=== PATIENT | female | born 1940 | race Caucasian/White ===

== ENCOUNTER → 2017-06-24 | Outpatient (CLI) | payer OTHER, MEDICARE ==
[~2017-06-24] MED LIST: ATORVASTATIN CA20 MG PO; BAYER CHEWABLE81 MG PO; BENICAR; CARVEDILOL3.125 MG PO; COZAAR 25 MG TA25 M2 PO; DUONEB 2.5-0.5 M3 ML INH; FELODIPINE 5 MG5 M1 PO; GLUCOPHAGE500 MG; HUMALOG100 UNIT/1 SUBQ; LIPITOR20 MG; METFORMIN HCL500 MG PO; MULTIVITAMINS; OMEPRAZOLE; OMEPRAZOLE20 M1 PO; PREDNISONE 20 M20 M1 PO; PROAIR HFA8.5 GM; ROCEPHIN 11 GM/1001 IV; TRADJENTA5 MG PO; VITAMIN D400 UNI1
== END ==
LOC: RAD 02:18
DX: Z12.31 Encounter for screening mammogram for malignant neoplasm of breast (principal)

== ENCOUNTER → 2018-06-25 | Outpatient (CLI) | payer OTHER, MEDICARE | LOC: RAD 01:16 | DX: Z12.31 Encounter for screening mammogram for malignant neoplasm of breast (principal); J44.9 Chronic obstructive pulmonary disease, unspecified; I10 Essential (primary) hypertension; E78.00 Pure hypercholesterolemia, unspecified; Z88.5 Allergy status to narcotic agent ==

== ENCOUNTER 2019-10-18 12:32 | Inpatient (IN) | payer OTHER, MEDICARE ==
[~2019-10-18] VITALS: Ht 160 cm; Wt 72.6 kg
[2019-10-18 12:34] VITALS: BP 156/72
[2019-10-18 12:51] LABS: ABSOLUTE NEUTROPHILS 4.8 thou/uL (1.4-8.2); EOSINOPHILS 6.8 % (0.0-3.0); HEMATOCRIT 40.7 % (37.0-47.0); HEMOGLOBIN 13.6 gm/dL (12.0-15.0); LYMPHOCYTES 25.4 % (24.0-44.0); MCH 29.4 pg (26.0-34.0); MCHC 33.4 g/dL (28.0-37.0); MCV 88.1 fL (80.0-100.0); MONOCYTES 8.5 % (1.0-8.0); PLATELET COUNT 246 thou/uL (150-400); POLYS 58.3 % (36.0-66.0); RBC 4.62 mil/uL (4.20-5.00); RDW 13.9 % (10.5-14.5); WBC 8.3 thou/uL (4.0-11.0)
[2019-10-18 13:00] LABS: CALCIUM 10.6 mg/dL (8.5-10.1); CREATININE 1.1 mg/dL (0.6-1.0); POTASSIUM 3.7 mmol/L (3.5-5.1)
[2019-10-18 13:09] LABS: TROPONIN-I 0.17 ng/mL (<0.06)
--- NOTE | 2019-10-18 13:24 | EKG ---
[place] [address] [facility] [facility] [employer] [address] ELECTROCARDIOGRAM REPORT Name: ERNESTINE SHANE [facility] [id number] Admission: 10/18/19 Attend Phys: Discharge: Date of : 40 Report #: [id number] THIS REPORT FOR: //name// [facility] ED Test Date: 2019-10-18 Test Time: 12:35:10 Pat Name: ERNESTINE SHANE Department: Room: Gender: F Functional Skills Tutor: : 1940 Requested By: Nic Emmanuel Order Number: [id number] MD: David Bonner Measurements Intervals Converse Rate: 83 P: 71 NH: 159 QRS: 31 QRSD: 100 T: 75 QT: 383 QTc: 450 Interpretive Statements Sinus rhythm Nonspecific ST segment abnormality Compared to ECG 01/15/2017 13:10:20 Ventricular premature complex(es) no longer present Electronically Signed On 10-18-2019 13:23:53 ABATTOIR MANAGER by David Bonner [email or web address] <ELECTRONICALLY SIGNED> By: David Bonner MD, [facility] 10/18/19 1323 1235 1235 David Bonner MD, FACC /EPI
[2019-10-18 13:43] VITALS: BP 147/65
[2019-10-18] MEDS ORDERED: METFORMIN HCL500 M3 PO (14:41)
[2019-10-18] MEDS ORDERED: LOSARTAN-HCTZ1 EAC3 PO (14:42)
[2019-10-18] MEDS ORDERED: TRIAMTERENE-HC1 EAC2 PO (14:43)
[2019-10-18 14:53] VITALS: BP 155/66
[2019-10-18 15:00] VITALS: BP 132/52
--- NOTE | 2019-10-18 18:28 | NUR ---
79 YO FEMALE ADMITTED TO 212 FROM ED. PATIENT HAD R CHEST PAIN IN ED. ASSESSMENT CHARTED, PATIENT STATES NO PAIN. ALERT AND ORIENTED X 3, NO CONCERNS STATED, WILL CONTINUE TO MONITOR.
[2019-10-18 19:49] VITALS: BP 133/70
[2019-10-19] VITALS (13 sets, daily range): BP systolic 120–143; BP diastolic 45–76
[2019-10-19 05:15] LABS: CHOLESTEROL 185 mg/dL (<200); HDL CHOLESTEROL 49 mg/dL (>40); LDL CHOLESTEROL 79 mg/dL (<100); SERUM ASSESSMENT Clear; TC:HDL 3.8 Ratio (Not establshd); TRIGLYCERIDE 286 mg/dL (<150); TROPONIN-I 0.17 ng/mL (<0.06); VLDL 57 mg/dL (<40)
--- NOTE | 2019-10-19 05:25 | NUR ---
ASSUMED CARE [id number]. PT ALERT AND ORIENTED . DENIES CHEST PAIN, N/V/D. VITAL SIGNS STABLE. PT USES OXYGEN AT NIGHT FOR SLEEP. DENIES NAUSEA, AND SHORT OF AIR. PT CURRENTLY STABLE. WILL CONTINUE TO FOLLOW POC.
[2019-10-19 07:22] LABS: CALCIUM 9.6 mg/dL (8.5-10.1); POTASSIUM 3.8 mmol/L (3.5-5.1)
--- NOTE | 2019-10-19 11:28 | NUR ---
ASSUMED CARE AT 0700, SHIFT ASSESSMENT DONE, MEDS GIVEN, NPO SINCE LAST NIGHT FOR HEART CATH. LEFT FOR PULMONARY SPECIALIST AT 1030. DENIES PAIN, NAUSEA, VOMITING. UP WITH STANDBY, ROOM AIR, NSR ON TELE. WILL CONTINUE TO ASSESS AND ASSIST WITH ADLs NEEDED.
--- NOTE | 2019-10-19 14:41 | NUR ---
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 she lives with roomate at home. patient reports she does not use any assistive device. She is independent with adls and self care. She is hoping to dc today. She reports plan to drive to [place] for and leaving next saturday. She has packing to do and prepare for trip. patient denies dc needs she does not believe she needs HH care. Plan home independently.
--- NOTE | 2019-10-19 16:34 | CATHLAB ---
[facility] [email or web address] [address] INVASIVE PROCEDURE REPORT Name: ERNESTINE SHANE Room #: 212-P ADM IN M.R.#: [id number] Admission: 10/18/19 Attend Phys: Trung Le Discharge: Date of : 40 Report #: [id number] THIS REPORT FOR: //name// APPROVED REPORT Study performed: 10/19/2019 11:04:59 Patient Details Patient Status: In-Patient Room #: The patient is a 79 year-old female Event Personnel Vini Mclean Fire Crew Worker, Gavi Santos RN RN, Marisol Lara RTR Simone Parrish Roberta Monitor, Edmund Hassan RTR Monitor Procedures Performed Art Access - R femoral artery* Left Heart Cath w/or w/o Coronaries [id number] [facility] [id number] Initial Mod Sed Same Phys/QHP 5y [id number] Hemostasis with Manual pressure Indication Chest pain, The patient presented with chest discomfort and minimal troponin elevation. Risk Factors Hypercholesterolemia, Hypertension, History of cardiomyopathy. Procedure Narrative The Right Groin^ was infiltrated with 1% Lidocaine subcutaneous anesthesia. A PINNACLE 4FR Sheath #[id number] sheath was inserted into the RFA^. Coronary angiography was performed using coronary diagnostic catheters. The right coronary system was accessed and visualized with a JR4 catheter. The left coronary system was accessed and visualized with a JL4 catheter. The left ventricle was accessed and visualized with a ANGLED PIGTAIL catheter. Hemostasis was obtained with manual pressure following sheath removal without any complications. There was no hematoma. Intraoperative Conscious Sedation Sedation start time: 10:54 Case end Time: 11:20 Fentanyl 50 mcg Versed 1 mg [facility] [address] [place] [address] INVASIVE PROCEDURE REPORT Name: ERNESTINE SHANE Room #: 212-[facility].#: [id number] Admission: 10/18/19 Attend Phys: Trung Le Discharge: Date of : 40 Report #: [id number] Fluoro Time: 2.30 minutes Dose: DAP 2592.00 cGycm2 662 mGy Contrast Type and Amount: Omnipaque 80 ml Coronary Angiography The patient's coronary anatomy is right dominant. Diagnostic Cath Left Main This is a large caliber vessel, patent with no flow-limiting lesions. LAD This is a moderate size caliber vessel, tortuous as it traverses the anterior wall and wraps around the apex. This vessel is patent with minimal luminal irregularities in the mid segment. Diagonal 1 This is a patent vessel, with no flow-limiting lesions. Circumflex This supplies one moderate size OM vessel. OM1 This is a moderate size caliber vessel, supplies multiple branches as it travels down the lateral wall. This vessel is patent with no flow-limiting lesions. Right Coronary This is a dominant vessel, patent with no flow-limiting lesions. R PDA This is a patent vessel, with no flow-limiting lesions. RPLV This is a patent vessel, with no flow-limiting lesions. Left Ventriculography The left ventricle is normal in size with normal contractility. The left ventricular ejection fraction is estimated to be >55%. Hemodynamics The aortic pressure is 146/54 mmHg with a mean of 75 mmHg. The left ventricular pressure is 162/3 mmHg with a mean of mmHg. The left ventricular end diastolic pressure is 25 mmHg. Conclusion 1. Angiographically normal coronary arteries, with minimal luminal irregularities in the mid segment of the LAD. 2. Normal LV systolic function. 3. Recommend risk factor management. <ELECTRONICALLY SIGNED> By: Vini Mclean MD 10/19/19 1634 1634 1634 Vini Mclean MD /INF
[2019-10-19] MEDS ORDERED: LOPRESSOR50 PO (16:42)
[2019-10-19 23:08] LABS: GLYCOHEMOGLOBIN (HGB A1C) 7.6 % (4.8-5.6)
== END 2019-10-19 18:38 | disposition home or self-care (01) | DRG 287 ==
LOC: ER 12:32 → 2N 13:42 → EROBS 13:42 → 2N 14:55 → ENTRNSPT 10-19 18:22 → 2N 10-19 18:38
PROVIDERS: Emergency Medicine; ADMIT Hospitalist
PROC: B2151ZZ Fluoroscopy of Left Heart using Low Osmolar Contrast (ICD-10-PCS; principal; 2019-10-19)
PROC: B2111ZZ Fluoroscopy of Multiple Coronary Arteries using Low Osmolar Contrast (ICD-10-PCS; principal; 2019-10-19)
PROC: 4A023N7 Measurement of Cardiac Sampling and Pressure, Left Heart, Percutaneous Approach (ICD-10-PCS; principal; 2019-10-19)
DX: I25.10 Atherosclerotic heart disease of native coronary artery without angina pectoris (principal); N17.9 Acute kidney failure, unspecified; I42.9 Cardiomyopathy, unspecified; I10 Essential (primary) hypertension; J44.9 Chronic obstructive pulmonary disease, unspecified; E78.5 Hyperlipidemia, unspecified; K21.9 Gastro-esophageal reflux disease without esophagitis; E83.52 Hypercalcemia; Z60.2 Problems related to living alone; E78.00 Pure hypercholesterolemia, unspecified; E11.51 Type 2 diabetes mellitus with diabetic peripheral angiopathy without gangrene; Z95.5 Presence of coronary angioplasty implant and graft; Z85.3 Personal history of malignant neoplasm of breast; Z99.81 Dependence on supplemental oxygen; Z90.49 Acquired absence of other specified parts of digestive tract; Z79.899 Other long term (current) drug therapy; Z79.84 Long term (current) use of oral hypoglycemic drugs; Z79.4 Long term (current) use of insulin; Z88.1 Allergy status to other antibiotic agents; Z88.8 Allergy status to other drugs, medicaments and biological substances; Z88.6 Allergy status to analgesic agent; Z82.49 Family history of ischemic heart disease and other diseases of the circulatory system
CPT/HCPCS: 10081

== ENCOUNTER → 2019-12-08 | Outpatient (CLI) | payer OTHER, MEDICARE ==
[~2019-12-08] MED LIST changes: +LOPRESSOR50 PO; +LOSARTAN-HCTZ1 EAC3 PO; +METFORMIN HCL500 M3 PO; +TRIAMTERENE-HC1 EAC2 PO
== END ==
LOC: SJCVC 10:43
DX: I25.10 Atherosclerotic heart disease of native coronary artery without angina pectoris (principal); K21.9 Gastro-esophageal reflux disease without esophagitis; E11.9 Type 2 diabetes mellitus without complications; G47.33 Obstructive sleep apnea (adult) (pediatric); I11.0 Hypertensive heart disease with heart failure; I50.9 Heart failure, unspecified; E78.00 Pure hypercholesterolemia, unspecified

== ENCOUNTER → 2020-03-18 | Outpatient (CLI) | payer OTHER, MEDICARE | LOC: SJCVCIMAG 08:17 | DX: I77.1 Stricture of artery (principal); I73.9 Peripheral vascular disease, unspecified; M79.602 Pain in left arm; I42.9 Cardiomyopathy, unspecified; I10 Essential (primary) hypertension; E78.00 Pure hypercholesterolemia, unspecified ==

== ENCOUNTER → 2020-09-06 | Outpatient (CLI) | payer OTHER, MEDICARE | LOC: SJCVCIMAG 07:22 | PROVIDERS: ATTEND Internal Medicine Cardiovascular Disease | DX: I08.8 Other rheumatic multiple valve diseases (principal); I11.9 Hypertensive heart disease without heart failure; R94.31 Abnormal electrocardiogram [ECG] [EKG]; E78.00 Pure hypercholesterolemia, unspecified; I77.1 Stricture of artery; I42.9 Cardiomyopathy, unspecified; J44.9 Chronic obstructive pulmonary disease, unspecified; Z79.899 Other long term (current) drug therapy ==

== ENCOUNTER → 2020-09-13 | Outpatient (CLI) | payer OTHER, MEDICARE | LOC: SJCVC 15:01 | PROVIDERS: ATTEND Internal Medicine Cardiovascular Disease | DX: I42.9 Cardiomyopathy, unspecified (principal); K21.9 Gastro-esophageal reflux disease without esophagitis; E11.9 Type 2 diabetes mellitus without complications; J44.9 Chronic obstructive pulmonary disease, unspecified; Z79.899 Other long term (current) drug therapy ==

== ENCOUNTER → 2020-10-04 | Outpatient (CLI) | payer OTHER, MEDICARE | LOC: SJCVC 10:38 | PROVIDERS: ATTEND Internal Medicine Cardiovascular Disease | DX: R94.31 Abnormal electrocardiogram [ECG] [EKG] (principal); I10 Essential (primary) hypertension; E78.00 Pure hypercholesterolemia, unspecified; J44.9 Chronic obstructive pulmonary disease, unspecified; Z79.899 Other long term (current) drug therapy ==

== ENCOUNTER → 2021-03-14 | Outpatient (CLI) | payer OTHER, MEDICARE | LOC: SJCVC 09:01 | PROVIDERS: ATTEND Internal Medicine Cardiovascular Disease | DX: I50.9 Heart failure, unspecified (principal); E78.00 Pure hypercholesterolemia, unspecified; K21.9 Gastro-esophageal reflux disease without esophagitis; E11.9 Type 2 diabetes mellitus without complications; G47.33 Obstructive sleep apnea (adult) (pediatric); J44.9 Chronic obstructive pulmonary disease, unspecified; J10.1 Influenza due to other identified influenza virus with other respiratory manifestations; I25.10 Atherosclerotic heart disease of native coronary artery without angina pectoris; M85.88 Other specified disorders of bone density and structure, other site; Z85.3 Personal history of malignant neoplasm of breast; Z88.5 Allergy status to narcotic agent; Z88.8 Allergy status to other drugs, medicaments and biological substances; Z79.82 Long term (current) use of aspirin; Z79.84 Long term (current) use of oral hypoglycemic drugs; Z79.899 Other long term (current) drug therapy ==

== ENCOUNTER → 2021-04-12 | Outpatient (CLI) | payer OTHER, MEDICARE | LOC: SJCVC 11:15 | PROVIDERS: ATTEND Internal Medicine Cardiovascular Disease | DX: R94.31 Abnormal electrocardiogram [ECG] [EKG] (principal); R00.2 Palpitations; R60.9 Edema, unspecified; I11.0 Hypertensive heart disease with heart failure; I50.9 Heart failure, unspecified; E78.00 Pure hypercholesterolemia, unspecified; I73.9 Peripheral vascular disease, unspecified; K21.9 Gastro-esophageal reflux disease without esophagitis; E11.9 Type 2 diabetes mellitus without complications; Z79.84 Long term (current) use of oral hypoglycemic drugs; Z79.82 Long term (current) use of aspirin; Z88.5 Allergy status to narcotic agent; Z88.1 Allergy status to other antibiotic agents ==

== ENCOUNTER → 2021-04-18 | Outpatient (CLI) | payer OTHER, MEDICARE | LOC: SJCVCIMAG 09:24 | PROVIDERS: ATTEND Internal Medicine Cardiovascular Disease | DX: I73.9 Peripheral vascular disease, unspecified (principal); M79.661 Pain in right lower leg; M79.662 Pain in left lower leg ==

== ENCOUNTER → 2021-05-10 | Outpatient (CLI) | payer OTHER, MEDICARE | LOC: SJCVC 10:10 | PROVIDERS: ATTEND Internal Medicine Cardiovascular Disease | DX: E78.00 Pure hypercholesterolemia, unspecified (principal); I50.9 Heart failure, unspecified; J44.9 Chronic obstructive pulmonary disease, unspecified; K21.9 Gastro-esophageal reflux disease without esophagitis; I11.0 Hypertensive heart disease with heart failure; G47.33 Obstructive sleep apnea (adult) (pediatric); E11.9 Type 2 diabetes mellitus without complications; I65.23 Occlusion and stenosis of bilateral carotid arteries; J10.1 Influenza due to other identified influenza virus with other respiratory manifestations; Z86.79 Personal history of other diseases of the circulatory system; Z88.5 Allergy status to narcotic agent; Z95.818 Presence of other cardiac implants and grafts; Z88.8 Allergy status to other drugs, medicaments and biological substances ==

== ENCOUNTER → 2021-10-09 | Outpatient (CLI) | payer OTHER, MEDICARE | LOC: SJCVC 13:04 | PROVIDERS: ATTEND Internal Medicine Cardiovascular Disease | DX: R94.31 Abnormal electrocardiogram [ECG] [EKG] (principal); R00.2 Palpitations; R60.9 Edema, unspecified; E78.00 Pure hypercholesterolemia, unspecified; I11.0 Hypertensive heart disease with heart failure; I50.9 Heart failure, unspecified; K21.9 Gastro-esophageal reflux disease without esophagitis; J44.9 Chronic obstructive pulmonary disease, unspecified; E11.9 Type 2 diabetes mellitus without complications; I25.10 Atherosclerotic heart disease of native coronary artery without angina pectoris; G47.33 Obstructive sleep apnea (adult) (pediatric); Z80.49 Family history of malignant neoplasm of other genital organs; Z88.8 Allergy status to other drugs, medicaments and biological substances; Z79.82 Long term (current) use of aspirin; Z79.899 Other long term (current) drug therapy; Z79.84 Long term (current) use of oral hypoglycemic drugs ==